=== PATIENT | male | born 1960 | race Caucasian/White ===

== ENCOUNTER 2020-06-08 17:07 | Emergency (ER) | payer BC, OTHER ==
[~2020-06-08] VITALS: Ht 187 cm; Wt 89.7 kg
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
[2020-06-08] MEDS ORDERED: HYDR-3812 PO (18:06)
[2020-06-08 18:20] VITALS: BP 132/80
== END 2020-06-08 18:20 | disposition home or self-care (01) ==
LOC: EDUNIT# 17:07 → ER 17:08
DX: S22.41XA Multiple fractures of ribs, right side, initial encounter for closed fracture (principal); V17.4XXA Pedal cycle driver injured in collision with fixed or stationary object in traffic accident, initial encounter
CPT/HCPCS: 71100

== ENCOUNTER 2021-04-08 05:34 | Outpatient (CLI) | payer BC, OTHER ==
[~2021-04-08] VITALS: Ht 188 cm; Wt 99.5 kg
[~2021-04-08 05:34] MED LIST: ACHD5005 PO
[2021-04-08] MEDS ORDERED: ATOR10TA66 PO (14:12)
[2021-04-08] MEDS ORDERED: TMSL.4C PO (14:13)
[2021-04-08] MEDS ORDERED: ENLP5T PO (14:13)
== END 2021-04-08 15:57 | disposition home or self-care (01) ==
LOC: PREOP 05:34
PROVIDERS: ATTEND Surgery
DX: Z01.818 Encounter for other preprocedural examination (principal)

== ENCOUNTER 2021-04-15 07:26 | Day surgery (SDC) | payer BC, OTHER ==
[~2021-04-15] VITALS: Ht 188 cm; Wt 99.5 kg
[~2021-04-15 07:26] MED LIST changes: +ATOR10TA66 PO; +ENLP5T PO; +TMSL.4C PO
[2021-04-15] MEDS ORDERED: LACTATED RINGERS 1,000 ML IV STA (07:29)
[2021-04-15] MEDS ORDERED: LACTATED RINGERS 1,000 ML IV ONE (07:31)
[2021-04-15 07:42] VITALS: BP 129/92
[2021-04-15] MEDS ORDERED: PROPOFOL INJECTION 50 ML IV ONE (08:01)
[2021-04-15 09:01] VITALS: BP 112/70
[2021-04-15 09:06] VITALS: BP 126/72
--- NOTE | 2021-04-15 09:07 | Progress Note-Post Operative ---
Post-Operative Progess Note Surgeon (s)/Recycling Center Operator (s) Surgeon ALEXEY CARNES DO Recycling Center Operator: none Pre-Operative Diagnosis Screening Post-Operative Diagnosis Polyps int hemorrhoids Procedure & Operative Findings Date of Procedure 04/15/21 Procedure Performed/Findings After informed consent was obtained, the patient was brought to the endoscopy suite and placed in the bed in the left lateral decubitus position. He was administered IV sedation by the WOOD PILER, who then monitored him vitals the entire time, heart rate, blood pressure and pulse ox and the scope was inserted, started the colonoscopy. Pushed all the way into about 150 cm to get all the way to cecum, on the way in found a polyp in the Transverse colon and did a snare polypectomy. Found another polyp near this one and also did a snare polypectomy. Then in the ascending colon saw another small polyp that I could not get with the snare and elected to do a cold biopsy. Pushed on into the Cecum and saw the appendiceal orifice, noted the ileocecal valve and then slowly withdrew the scope, insufflating to look circumferentially at the red starting in the cecum, up the ascending colon to the hepatic flexure, then down the transverse colon to the splenic flexure, into the descending colon. In the descending colon saw another small polyp that I was able to completely remove with cold biopsy. Finally down into the sigmoid and finally into the rectum, retroflexed in the rectal vault, saw some minimal internal hemorrhoids and took a picture of this and removed the scope. The patient tolerated the procedure and he recovered in the endoscopy suite. Anesthesia Type IV sedation by WOOD PILER Estimated Blood Loss Estimated blood loss (mL): scant Specimens/Packing Specimens Removed transverse colon polyp x2 (3 pieces) asc colon polyp desc colon polyp ALEXEY CARNES DO Apr 15, 2021 09:07
--- NOTE | 2021-04-15 09:08 | Endoscopy Discharge Instruct ---
Endo Procedure/Findings Findings 1.: Polyp 2.: Internal Hemorrhoids Discharge Instructions - Activity: You might feel a little sleepy until tomorrow. This is due to the medicine you received to relax you. Until tomorrow, you should: NOT drive a car, operate machinery or power tools. NOT drink any alcoholic beverages. NOT make any important decisions or sign importortant papers. Do not return to work until tomorrow, unless otherwise instructed. Resume previous activities tomorrow. Diet: Start by taking liquids. If you tolerate liquids, advance to solid food. 1.: Colonscopy in 3 years Notify Physician - If you experience excessive bleeding, unusual abdominal pain, fever, or chest pain, contact your doctor immediately. ALEXEY CARNES DO Apr 15, 2021 09:08
[2021-04-15 09:15] VITALS: BP 126/72
[2021-04-15 10:05] VITALS: BP 125/70
--- NOTE | 2021-04-15 11:11 | Anesthesia-General Post-Op ---
MAC Patient Condition Mental Status/LOC: Same as Preop Cardiovascular: Satisfactory Nausea/Vomiting: Absent Respiratory: Satisfactory Pain: Controlled Complications: Absent Post Op Complications Complications None Follow Up Care/Instructions Patient Instructions None needed. Anesthesiology Discharge Order Discharge Order Patient is doing well, no complaints, stable vital signs, no apparent adverse anesthesia problems. No complications reported per nursing. WILMAR MARSHALL CRNA Apr 15, 2021 11:11
== END 2021-04-15 10:05 | disposition home or self-care (01) ==
LOC: ENDO 07:26
PROVIDERS: ATTEND Surgery
DX: Z12.11 Encounter for screening for malignant neoplasm of colon (principal); D12.2 Benign neoplasm of ascending colon; D12.4 Benign neoplasm of descending colon; D12.3 Benign neoplasm of transverse colon; K64.8 Other hemorrhoids; I10 Essential (primary) hypertension; E78.5 Hyperlipidemia, unspecified; Z79.899 Other long term (current) drug therapy; Z79.890 Hormone replacement therapy